=== PATIENT | male | born 1965 | race African-American/Black ===

== ENCOUNTER 2017-07-15 11:03 | Emergency (ER) | payer SELFPAY ==
[2017-07-15 11:56] LABS: Bilirubin Negative (Negative); Blood, Urine Trace (Negative); Glucose, Urine (Dipstick) Negative (Negative); Ketone, Urine Negative (Negative); Nitrite Negative (Negative); Protein, Urine (Dipstick) Negative (Neg-Trace)
[2017-07-15 12:02] LABS: Bacteria/HPF None Seen HPF (None Seen); Hyaline Casts/LPF 0-3 HYALINE CAST LPF (0-3 Hyaline); Squamous Epithelial None Seen HPF (0-3); WBC/HPF 0-3 HPF (0-3)
[2017-07-17 19:10] LABS: GC - Neisseria gonorrhoeae NAA Negative (Negative)
== END 2017-07-15 11:50 | disposition home or self-care (01) ==
LOC: ERS 11:03
DX: Z11.3 Encounter for screening for infections with a predominantly sexual mode of transmission (principal)
CPT/HCPCS: 81003; 81015; 87491; 87591; 99284

== ENCOUNTER 2021-05-28 12:47 | Emergency (ER) | payer SELFPAY | END 2021-05-28 13:58 | disposition home or self-care (01) | LOC: ERS 12:47 | DX: M25.472 Effusion, left ankle (principal); M25.471 Effusion, right ankle; M79.89 Other specified soft tissue disorders; F17.290 Nicotine dependence, other tobacco product, uncomplicated | CPT/HCPCS: 99283 ==

== ENCOUNTER 2022-09-11 07:15 | Emergency (ER) | payer SELFPAY | END 2022-09-11 08:32 | disposition home or self-care (01) | LOC: ERS 07:15 | DX: L23.9 Allergic contact dermatitis, unspecified cause (principal); L90.5 Scar conditions and fibrosis of skin | CPT/HCPCS: 99282 ==

== ENCOUNTER 2024-01-16 11:48 | Outpatient (CLI) | payer BC ==
[2024-01-16 13:30] LABS: #Basophils 0.05 10x3/uL (0.0-0.2); #Eosinphils 0.39 10x3/uL (0.0-0.5); #Monocytes 0.47 10x3/uL (0.0-1.1); #Neutrophils 2.08 10x3/uL (1.5-8.4); %Basophils 0.9 % (0.0-2.0); %Eosinophils 7.2 % (0.0-6.0); %Lymphocytes 44.1 % (18.0-47.0); %Monocytes 8.7 % (0.0-10.0); %Neutrophils 38.7 % (40.0-75.0); Hematocrit 43.5 % (38.8-50.0); Hemoglobin 14.4 g/dL (13.5-17.5); Mean Corpuscular HGB CONC 33.1 g/dL (32.0-36.0); Mean Corpuscular Hemoglobin 28.5 pg (27.0-33.0); Mean Platelet Volume 11.6 fL (7.4-10.4); Platelet Count 186 10x3/uL (150-450); RBC Distribution Width 15.2 % (11.5-14.5); Red Blood Cell (RBC) Count 5.06 10x6/uL (4.32-5.72); White Blood Cell (WBC) Count 5.4 10x3/uL (3.5-10.5)
== END 2024-01-16 11:49 | disposition home or self-care (01) ==
LOC: LABBT 11:48
PROVIDERS: ATTEND Orthopaedic Surgery Hand Surgery
DX: Z01.818 Encounter for other preprocedural examination (principal); M67.441 Ganglion, right hand
CPT/HCPCS: 85025; 93005; 93010

== ENCOUNTER 2024-01-21 07:35 | Day surgery (SDC) | payer BC ==
[2024-01-16 12:42] VITALS: BMI 23.7
[2024-01-21] MEDS ORDERED: fentaNYL 50 mcg/mL 1 mL Vial ONE (10:36)
[2024-01-21] MEDS ORDERED: Ondansetron PF 4 MG/2 ML Vial ONE (10:36)
[2024-01-21] MEDS ORDERED: PROPOFOL 20 ML ONE (10:36)
[2024-01-21] MEDS ORDERED: Lidocaine 1% PF 5 ML VIAL ONE (10:36)
[2024-01-21] MEDS ORDERED: Dexamethasone 20 MG/5 ML VIAL ONE (10:36)
[2024-01-21] MEDS ORDERED: Bacitracin Zinc Ointment 30 gm TUBE ONE (11:04)
[2024-01-21] MEDS ORDERED: Sodium Chloride 0.9% 100 ML ONE (11:07)
[2024-01-21] MEDS ORDERED: CEFAZOLIN 2 GM VIAL ONE (11:07)
[2024-01-21] MEDS ORDERED: PHENYLEPHRINE-NS 100 MCG/ML 10 ML SYRINGE ONE (12:11)
[2024-01-21] MEDS ORDERED: Ketorolac Tromethamine 30 MG (1 mL) VIAL ONE (12:28)
== END 2024-01-21 13:30 | disposition home or self-care (01) ==
LOC: SDC 07:35
PROVIDERS: ATTEND Orthopaedic Surgery Hand Surgery
PROC: 0JBJ0ZZ Excision of Right Hand Subcutaneous Tissue and Fascia, Open Approach (ICD-10-PCS; principal; 2024-01-21)
DX: D48.19 Other specified neoplasm of uncertain behavior of connective and other soft tissue (principal); Z87.891 Personal history of nicotine dependence
CPT/HCPCS: 88304; A6223; J1100; J1885; J2405; J2704; J3010; J3490